=== PATIENT | female | born 1990 | race Caucasian/White ===

== ENCOUNTER 2023-12-14 15:59 | Emergency (ER) | payer OTHER, BC, SELFPAY ==
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
[2023-12-14 16:04] VITALS: BP 111/89; PULSE 101; RESP 16; TEMP 36.6; O2SAT 98
[2023-12-14 16:30] LABS: Basophils Absolute Auto 0.1 K/mm3 (0.0-0.1); Basophils Percent Auto 0.5 % (0.2-1.2); Eosinophils Absolute Auto 0.2 K/mm3 (0-0.3); Eosinophils Percent Auto 1.1 % (0-4.4); Hematocrit 39.1 % (37.0-47.0); Hemoglobin 13.4 g/dL (12.0-15.0); Immature Granulocyte Absolute 0.06 K/mm3 (0.00-0.031); Immature Granulocyte Percent A 0.4 % (0-0.5); Lymphocytes Percent Auto 30.2 % (18.3-44.2); Mean Corpuscular HGB Conc 34.3 g/dl (32-36); Mean Corpuscular Hemoglobin 28.6 pg (26-34); Mean Corpuscular Volume 83.4 fl (80-100); Mean Platelet Volume 10.9 fl (7.4-10.4); Monocytes Absolute Auto 0.7 K/mm3 (0.1-0.6); Neutrophils Absolute Auto 9.2 K/mm3 (1.3-6.7); Neutrophils Percent Auto 62.8 % (45.5-73.1); Platelet Count Result 291 k/mm3 (150-375); Red Blood Count 4.69 M/mm3 (4.2-5.4); Red Cell Distribution Width 13.2 % (11.5-14.5); White Blood Count 14.6 K/mm3 (4.5-10.0)
[2023-12-14 16:42] LABS: Alanine Aminotransferase 16 U/L (6-35); Albumin Level 4.9 g/dL (3.5-5.1); Alkaline Phosphatase 58 U/L (38-126); Anion Gap 14 mmol/L (4-12); Aspartate Amino Transferase 25 U/L (14-36); Bilirubin,Total 0.6 mg/dL (0.2-1.3); Blood Urea Nitrogen 12 mg/dL (7-17); Calcium 9.1 mg/dL (8.4-10.2); Carbon Dioxide 19 mmol/L (22-30); Chloride 105 mmol/L (98-107); Estimated CRCL calculation 129 ml/min; Estimated Glomerular Filt Rate > 60; Glucose 98 mg/dL (65-110); Lipase 92 U/L (23-300); Potassium 3.6 mmol/L (3.4-5.0); Sodium 138 mmol/L (137-145)
[2023-12-14 16:45] LABS: Appearance Urine Cloudy (Clear); Bacteria Urine 3+ /hpf; Bilirubin Urine Negative (Negative); Blood Urine Negative (Negative); Color Urine Yellow (Yellow); Glucose Urine UA Negative (Negative); Ketones Urine Trace mg/dL (Negative); Leukocyte Esterase Ur Negative LEU/UL (Negative); Need Manual Microscopic Reviewed; Nitrate Urine Negative (Negative); Protein Urine 1+ mg/dL (Negative); Squamous Epithelial Cell Urine Moderate /hpf (Few); pH Urine 5.5 (5.0-9.0)
[2023-12-14 16:46] LABS: Add Urine Microscopic? YES
[2023-12-14 16:59] LABS: Beta HCG Quantitative 736.81 mIU/ML
--- NOTE | 2023-12-14 17:57 | PC.NURSE ---
patient took tylenol while waiting in the waiting room
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
[2023-12-14] MEDS: SODIUM CHLORIDE 0.9% IV 1,000 ML 999 ML IV CONT (19:28)
== END 2023-12-14 22:16 | disposition home or self-care (01) ==
PROVIDERS: Physician Assistant; Emergency Provider Emergency Medicine
DX: O9A.211 Injury, poisoning and certain other consequences of external causes complicating pregnancy, first trimester (principal); S60.222A Contusion of left hand, initial encounter; S20.312A Abrasion of left front wall of thorax, initial encounter; R10.32 Left lower quadrant pain; R10.31 Right lower quadrant pain; Z3A.01 Less than 8 weeks gestation of pregnancy; V49.40XA Driver injured in collision with unspecified motor vehicles in traffic accident, initial encounter
CPT/HCPCS: 36415; 71260; 73130; 74177; 80053; 81001; 81025; 83690; 84702; 85025; 87086; 96360; 99284; J7030; Q9967

== ENCOUNTER 2024-03-16 07:48 | Outpatient (CLI) | payer OTHER, SELFPAY ==
--- NOTE | ~2024-03-16 | US_ITS ---
EXAMINATION: US soft tissue UE LT DATE: 03/16/2024 08:14 INDICATION: Left hand pain and bones of the posterior second and third digits. TECHNIQUE: Multiple grayscale and Doppler ultrasound images of the region of concern at the dorsal as pect of the second and third digits were obtained. COMPARISON: None FINDINGS: There is bulging of the skin surface overlying the left second proximal interphalangeal joints which appears to result from small hypoechoic joint effusions and/or synovitis extending dorsally from the joint spaces. Similar though more subtle findings at the left third proximal interphalangeal joint. N o ganglion cysts or other abnormal masses or fluid collections identified. IMPRESSION: 1. Small joint effusions and/or synovitis at the left second and and to lesser degree third proximal interphalangeal joints. No other abnormal masses or fluid collections identified. Reviewed, dictated and finalized at location A.
== END 2024-03-16 07:49 | disposition home or self-care (01) ==
PROVIDERS: PCP Student in an Organized Health Care Education/Training Program; Visit Provider Student in an Organized Health Care Education/Training Program
DX: M25.442 Effusion, left hand (principal)
CPT/HCPCS: 76882